=== PATIENT | female | born 1980 | race Caucasian/White ===

== ENCOUNTER 2019-12-18 14:56 | Emergency (ER) | payer MEDICAID ==
[~2019-12-18] VITALS: Ht 175.3 cm; Wt 127.7 kg
--- NOTE | 2019-12-18 16:52 | NUR ---
rn field case manager:Pt called to room from lobby.
[2019-12-18 17:49] VITALS: BP 136/86
== END 2019-12-18 17:51 | disposition home or self-care (01) ==
LOC: ED 16:20
DX: J01.00 Acute maxillary sinusitis, unspecified (principal); R05 Cough; H92.03 Otalgia, bilateral; F17.210 Nicotine dependence, cigarettes, uncomplicated
CPT/HCPCS: 71045; 87081; 87880; 99284; 99406